=== PATIENT | female | born 1960 | race Caucasian/White ===

== ENCOUNTER → 2020-03-23 | Outpatient (CLI) | payer OTHER ==
--- NOTE | 2020-03-23 16:27 | RAD ---
EXAM: AP, lateral and lumbosacral spot views of the lumbar spine DATE: 03/23/2020 12:00 AM INDICATION: Reason: OSTEOPENIA. ARTHRITIS. SJOGRENS. / Spl. Instructions: / History: COMPARISON: No Prior FINDINGS: Transitional lumbosacral anatomy. Vertebral body heights are preserved. Disc heights are preserved. No spondylolisthesis. IMPRESSION: No acute fracture or subluxation. Transitional lumbosacral anatomy. Electronically signed by: Niels Crenshaw MD (03/23/2020 4:24 PM) [id number]
== END ==
LOC: RAD 14:13
PROVIDERS: ATTEND Family Medicine
DX: M47.816 Spondylosis without myelopathy or radiculopathy, lumbar region (principal); M85.88 Other specified disorders of bone density and structure, other site
CPT/HCPCS: 72100